=== PATIENT | female | born 1995 | race Hispanic/Latino ===

== ENCOUNTER 2024-11-08 08:25 | Emergency (ER) | payer BC ==
[~2024-11-08] VITALS: Ht 152.4 cm; Wt 56.7 kg
[2024-11-08 09:19] LABS: IMMATURE GRANULOCYTE ABSOLUTE 0.02 K/uL (0-1); NUCLEATED RED BLOOD CELLS 0.0 % (0.0-0.19); PLATELET COUNT (AUTO) 192 K/uL (130-400); RED BLOOD CELL COUNT(AUTO) 4.77 MIL/uL (4.00-5.50); RED CELL DISTRIBUTION WIDTH 13.0 % (11.0-15.5); WHITE BLOOD COUNT (AUTO) 6.2 K/uL (4.8-10.8)
[2024-11-08 09:43] LABS: CREATININE 0.6 mg/dL (0.5-1.0); GLOMERULAR FILTR. RATE CALC 125.0 mL/min (>90); GLUCOSE,RANDOM 92.0 mg/dL (70-105); SODIUM SERUM 137.0 mmol/L (136-145); UREA NITROGEN, BLOOD 14.0 mg/dL (7-18)
--- NOTE | 2024-11-08 10:33 | HMCIMG ---
EXAM: CR Chest, 1 View. CLINICAL HISTORY: cp COMPARISON: None provided. FINDINGS: LUNGS: The lungs show no infiltrate or other acute finding. PLEURAL SPACES: No pleural effusion or pneumothorax. MEDIASTINUM: Cardiac size and mediastinal contours within normal limits. BONES: No acute osseous abnormality. IMPRESSION: No acute cardiopulmonary pathology is evident. /[place]
--- NOTE | 2024-11-08 10:53 | ERN ---
General Chief Complaint: Chest Pain Stated Complaint: CP Time Seen by MD: 08:26 Time Seen by Midlevel: 08:26 Source: patient History of Present Illness Initial Comments Patient is a 28-year-old female with no past medical history presenting the ER for evaluation of chest pain that began four days ago. Pain has been patient is in bed nose so she symptoms reported. He has denies dizziness, syncope, nausea, vomiting, or any other symptoms. No dysuria according to disease, pulmonary embolism, recent surgery, or prolonged travel. Allergies: Coded Allergies: No Known Drug Allergies (Unverified Allergy, Unknown, 11/08/24) Past Medical History Past Medical History: No Pertinent History Medical History Other: denies pmhx Past Surgical History: None ROS Dictation CONSTITUTIONAL: Negative except for HPI HEAD/FACE: Negative except for HPI EENT: Negative except for HPI RESPIRATORY: Negative except for HPI GASTROINTESTINAL/ABDOMINAL: Negative except for HPI GENITOURINARY: Negative except for HPI MUSCULOSKELETAL: Negative except for HPI INTEGUMENTARY: Negative except for HPI NEUROLOGICAL/PSYCH: Negative except for HPI HEMATOLOGIC/LYMPHATIC: Negative except for HPI All Systems Negative, Except as noted above. 13 point review of systems assessed and all negative except for above. Physical Exam Physical Exam Dictation Vital Signs reviewed General Appearance: Alert, oriented x 3, no acute distress, well developed, nourished. Head and Face: non-traumatic. Eyes: PERRL, pink conjunctivas, eyelid no trauma, anterior chamber with arcus senilis. Ears: Pinnas intact and no signs of trauma or erythema ear canals clear and no discharge TM no erythema Nose: No discharge, no bleeding. Oropharynx: Mouth normal, tongue pink, pharynx clear,no erythema, tonsils no exudates, no abscesses noted, mucous membrane moist Neck: Supple, non-tender, no thyromegaly, no masses, no JVD, no bruits Breast:Deferred Chest:No tenderness, no crepitus, no paradoxical movement, no retractions Lungs:Clear, well-ventilated, symmetric, no rales, no wheezing, no rhonchi, no stridor, good breath sounds bilaterally Heart: Regular rate, regular rhythm, no murmur, no gallops Vascular: no peripheral edema, Abdomen: Soft, positive bowel sounds, nondistended, no guarding, nontender, no rebound, no masses no hepatomegaly, no splenomegaly, no Adams's sign, no hernias. Rectal: Deferred Genital: Deferred Neurological: Normal speech, motor function intact, sensory function intact Musculoskeletal: Neck nontender, full range of motion, back nontender, full range of motion, Extremities: nontender, full range of motion Skin: Color pink, dry, no turgor, no rash, no lacerations, no abrasions, no contusions. Lymphatic: Deferred Results Laboratory and Microbiology Lab and Micro Result Laboratory Tests Test 11/08/24 08:54 White Blood Count 6.2 K/uL (4.8-10.8) Red Blood Count 4.77 MIL/uL (4.00-5.50) Hemoglobin 14.5 g/dL (12.0-16.0) Hematocrit 43.3 % (36-48) Mean Corpuscular Volume 90.8 fL (79-99) Mean Corpuscular Hemoglobin 30.4 pg (27.0-33.0) Mean Corpuscular Hemoglobin Concent 33.5 g/dL (32.0-36.0) Red Cell Distribution Width 13.0 % (11.0-15.5) Platelet Count 192 K/uL (130-400) Mean Platelet Volume 13.0 fL (7.5-10.5) H Immature Granulocyte % (Auto) 0.3 % (0-1) Neutrophils (%) (Auto) 66.4 % (40.0-77.0) Lymphocytes (%) (Auto) 23.2 % (21.0-51.0) Monocytes (%) (Auto) 8.5 % (3.0-13.0) Eosinophils (%) (Auto) 0.8 % (0.0-8.0) Basophils (%) (Auto) 0.8 % (0.0-5.0) Neutrophils # (Auto) 4.1 K/uL (1.8-7.7) Lymphocytes # (Auto) 1.4 K/uL (1.0-4.8) Monocytes # (Auto) 0.5 K/uL (0.1-1.0) Eosinophils # (Auto) 0.05 K/uL (0.00-0.70) Basophils # (Auto) 0.05 K/uL (0.00-0.20) Absolute Immature Granulocyte (auto 0.02 K/uL (0-1) Nucleated Red Blood Cells 0.0 % (0.0-0.19) D-Dimer Quantitative (PE/DVT) 151 ng/mL (0-500) Sodium Level 137 mmol/L (136-145) Potassium Level 3.8 mmol/L (3.5-5.1) Chloride Level 102 mmol/L (101-111) Carbon Dioxide Level 30 mmol/L (21-32) Blood Urea Nitrogen 14 mg/dL (7-18) Creatinine 0.6 mg/dL (0.5-1.0) Glomerular Filtration Rate Calc 125 mL/min (>90) Random Glucose 92 mg/dL (70-105) Total Calcium 8.8 mg/dL (8.5-10.1) Troponin I High Sensitivity < 4 ng/L (4-50) L Thyroid Stimulating Hormone (TSH) 1.01 uIU/mL (0.36-3.74) Serum Test, Qualitative NEGATIVE (NEGATIVE) Labs Reviewed?: Yes MDM MDM: Given the complaint of the chest pain a cardiac workup was performed. EKG showed no acute ischemic changes. Troponin was negative. Chest x-ray shows no acute cardiopulmonary process. CBC and basic metabolic panel were normal. D- dimer is negative. Patient remained hemodynamically stable throughout her ED stay and reported or worsening of symptoms. Based on her age, with a factors, history and negative workup suspicion for ACS, PE dissection or other emergent pathologies wearing heel. Most consistent with musculoskeletal chest wall pain or noncardiac etiology. Patient is a for discharge with strict precautions and outpatient follow up Differential diagnosis: Acute coronary syndrome, musculoskeletal pain, pneumonia, pneumothorax There are no social concerns with this patient. Prescription drug management Prescriptions will include: None Medical management and examination interpretation discussions were had by me with other qualified healthcare professionals as indicated for the patient's care. ED Course Orders Procedure Category Date Status Time Cbc With Differential LAB 11/08/24 Complete 08:38 Basic Metabolic Panel LAB 11/08/24 Complete 08:38 Troponin I High LAB 11/08/24 Complete Sensitivity 08:38 Testing, LAB 11/08/24 Complete Serum Hcg 08:38 Chest 1vw RAD 11/08/24 Resulted 08:38 Thyroid Stimulating LAB 11/08/24 Complete Hormone 08:38 D-Dimer LAB 11/08/24 Complete 08:38 Vital Signs Date Time Temp Pulse Resp B/P (MAP) Pulse Ox O2 Delivery O2 Flow Rate FiO2 11/08/24 08:32 97.9 82 16 122/67 100 Room Air* 0 21 11/08/24 08:28 97.9 82 16 122/67 100 Room Air 0 [facility] [address] [place] [address] IMAGING REPORT Signed PATIENT: FELA OROPEZA MR#: [id number] : 1995 SEX: F AGE: 28 LOCATION: [facility] ORDER 8 STATUS: REG ER REPORT#: [id number] SERVICE REASON: cp ORDERING PHYSICIAN: MINH ARMSTRONG PROCEDURE: CXR1VW - CHEST 1VW EXAM: CR Chest, 1 View. CLINICAL HISTORY: cp COMPARISON: None provided. FINDINGS: LUNGS: The lungs show no infiltrate or other acute finding. PLEURAL SPACES: No pleural effusion or pneumothorax. MEDIASTINUM: Cardiac size and mediastinal contours within normal limits. BONES: No acute osseous abnormality. IMPRESSION: No acute cardiopulmonary pathology is evident. /[place] DICTATED BY: ROBY ARENAS Jr., MD DATE: 11/08/241132 ELECTRONICALLY SIGNED BY: ROBY ARENAS Jr., MD DATE: 11/08/24 113 HEART Score Response (Comments) Value History: Low suspicion (0) 0 EKG: Normal 0 Age: < 45yrs (0) 0 Risk Factors: No known risk factors (0) 0 Initial Troponin: Normal limit (0) 0 HEART Score Risk: Low Risk for MACE (1-3) Total 0 DX & DISP Disposition: Discharge Departure Impression: Primary Impression: Non-cardiac chest pain Condition: Stable Additional Instructions: You were evaluated for chest pain. Your heart passes, blood work, and chest x- ray were all normal. At this time there was no evidence of a heart attack, blood clot or other serious problems. Your pain is most likely chest wall muscles are another noncardiac cause. Rest, stay hydrated, and avoid strenuous activities until your symptoms improve. You may take Tylenol and Motrin as needed for pain. Follow up your primary care provider within the next few days. Return to the ER if you develop worsening chest pain, shortness of breath, fainting, pain that radiates to your arm, neck, or jaw or any new concerning symptoms. Referrals: SELF,REFERRAL (PCP) Time of Disposition: 11:11 I have reviewed the case, and I agree with, Diagnosis and Plan I performed the substantive portion of the visit. I have reviewed and personally made and approve the management plan that is documented in the note by myself or the SOBIA. I acknowledge for responsibility for the patient's management plan. MINH ARMSTRONG Nov 08, 2024 10:53
[2024-11-08 11:14] VITALS: BP 122/67; PULSE 76; RESP 16; TEMP 97.8; O2SAT 100
--- NOTE | 2024-11-09 10:26 | EKG ---
[facility] Test Date: 2024-11-08 Test Time: 08:28:05 Pat Name: FELA OROPEZA Department: ED Room: Gender: F Typing Secretary: [facility] : 1995 Requested By: CHASITY ORTEGA Order Number: [id number] Reading MD: Julito Smith Measurements Intervals [place] Rate: 67 P: 27 SD: 136 QRS: 79 QRSD: 101 T: 32 QT: 386 QTc: 409 Interpretive Statements Sinus rhythm Nonspecific T abnormalities, anterior leads No previous ECG available for comparison Electronically Signed On 11-10-2024 17:28:34 CDT by Julito Smith Please click the below link to view image of tracing.
== END 2024-11-08 11:21 | disposition home or self-care (01) ==
LOC: EDH 08:25
DX: R07.89 Other chest pain (principal)
CPT/HCPCS: 36415; 71045; 80048; 84443; 84484; 84703; 85025; 85378; 93005; 99284